=== PATIENT | male | born 1940 | race Caucasian/White ===

== ENCOUNTER 2024-11-11 13:21 | Inpatient (IN) | payer OTHER ==
[~2024-11-11] VITALS: Ht 182.9 cm; Wt 94.1 kg
[~2024-11-11 13:21] MED LIST: ACET-6 PO; ATOR20TA50 PO; BACL10TA PO; DICL-545 EXT; FURO20TA4 PO; IBUP-1455 PO; IPR002IS NEB; LEVA1AER PO; LOSA-535 PO; METO25TA93 PO; OXYC325T14 PO; TRAM50TA2 PO
[2024-11-11 18:16] LABS: Basophils # (auto) 0 10 ^3/uL (0-0.2); Basophils % (auto) 0.2 % (0.0-2.0); Eosinophils # (auto) 0 10 ^3/uL (0-0.8); Hematocrit 37.7 % (41.0-53.0); Lymphocytes # (auto) 0.7 10 ^3/uL (0.4-5.4); Lymphocytes % (auto) 5.2 % (10.0-50.0); Mean Corpuscular Hemoglobin 32.8 pg (28.0-32.0); Mean Corpuscular Hgb Conc. 34.5 g/dL (32.0-36.0); Mean Corpuscular Volume 95.2 fL (80.0-100.0); Monocytes # (auto) 0.7 10 ^3/uL (0-1.3); Monocytes % (auto) 4.7 % (0.0-12.0); Neutrophils % (auto) 89.9 % (37.0-80.0); Platelet Count (auto) 338 10^3/uL (140-450); Red Blood Cells 3.96 10^6/uL (4.5-5.90); Red Cell Distribution Width 15.9 % (11.8-14.3); White Blood Cell 14.5 10^3/uL (4.4-10.8)
[2024-11-11] MEDS: LACTATED RINGER'S 1,000 ML IV ONE (18:27)
[2024-11-11 18:31] VITALS: PULSE 74; RESP 20; O2SAT 95
[2024-11-11 18:37] LABS: Alanine Aminotransferase 32 U/L (7-40); Albumin 4.7 g/dL (3.2-4.8); Alkaline Phosphatase 74 U/L (46-116); Anion Gap 10 (5-15); Aspartate Aminotransferase 25 U/L (13-40); BUN/Creatinine Ratio 27.5 (10.0-20.0); Blood Urea Nitrogen 22 mg/dL (9-23); Calcium 10.1 mg/dL (8.7-10.4); Carbon Dioxide 27 mmol/L (20-31); Chloride 105 mmol/L (98-107); Lipase 30 U/L (12-53); Magnesium 2.3 mg/dL (1.6-2.6); Potassium 4.4 mmol/L (3.5-5.1); Sodium 142 mmol/L (136-145); Total Protein 7.7 g/dL (5.7-8.2)
[2024-11-11 18:38] LABS: Bilirubin, Total 0.6 mg/dL (0.2-1.0); Phosphorus 2.5 mg/dL (2.4-5.1)
[2024-11-11 18:43] LABS: Glucose 122 mg/dL (74-106)
--- NOTE | 2024-11-11 21:38 | ED.PDOC ---
History of Present Illness HPI Comments Dr. Ferrera, 84 year old gentleman with pmhx of COPD (2nd hand smoking), hypertension, congestive heart failure, osteoarthritis, chronic back pain, knee pain, hip pain, skin cancer status post excision, on legal parole came from home with sudden onset of Nausea that woke him up in the AM, with non bloody, non b iliary vomiting x 3 now having dry heave. Denies headache, neurological changes, aspiration, chest pain, constipation, diarrhea, dietary change, dysphagia, significant weight loss or any other GI symptoms. Had distant history of colonoscopy and never had any EGD done or GI follow up. Negative for familial GI malignancy or familial GI disorders. Accompanied by daughter. Chief Complaint: Nausea/Vomiting Time Seen by MD: 15:05 Primary Care Provider: LEYLA Drew Notes: Nurses Notes, Medications, Allergies Allergies: Coded Allergies: NO KNOWN ALLERGIES (Unverified , 11/11/24) Information Source: Patient, Relative (Child) Mode of Arrival: Wheelchair Severity: Moderate Timing: Hours Duration: Since onset, Intermittent Context: Nausea/ Vomiting Quality constant Worsens with diet Improves fasting Associated signs and symptoms watery vomitus Past Medical History Past Medical History (Other): as above Surgical History (Other): as above Family History Family History: Reviewed,noncontributory to illness Social History Smoker: Non-Smoker Alcohol: Denies ETOH Use Drugs: Denies Drug Use Lives In: Home (at home with daughter, has cane and walker ) Constitutional: denies: chills, diaphoresis, fatigue, fever, malaise, sweats, weakness, others EENTM: denies: blurred vision, double vision, ear bleeding, ear discharge, ear drainage, ear pain, ear ringing, eye pain, eye redness, hearing loss, mouth pain, mouth swelling, nasal discharge, nose bleeding, nose congestion, nose p ain, photophobia, tearing, throat pain, throat swelling, voice changes, others Respiratory: denies: cough, hemoptysis, orthopnea, SOB at rest, shortness of breath, SOB with excertion, stridor, wheezing, others Cardiovascular: denies: chest pain, dizzy spells, diaphoresis, Dyspnea on exertion, edema, irregular heart beat, left arm pain, lightheadedness, palpitations, PND, syncope, others Gastrointestinal: reports: nausea, poor appetite, poor fluid intake, vomiting; denies: abdomen distended, abdominal pain, blood streaked bowels, constipated, diarrhea, dysphagia, difficulty swallowing, hematemesis, melena, rectal bleeding, rectal pain, others Genitourinary: denies: burning, dysuria, flank pain, frequency, hematuria, incontinence, penile discharge, penile sore, pain, testicle pain, testicle swelling, urgency, others Neurological: denies: dizziness, fainting, headache, left sided numbness, left sided weakness, numbness, paresthesia, pre-existing deficit, right sided numbness, right sided weakness, seizure, speech problems, tingling, tremors, weakness, others Musculoskeletal: denies: back pain, gout, joint pain, joint swelling, muscle pain, muscle stiffness, neck pain, others Integumetry: denies: bruises, change in color, change in hair/nails, dryness, laceration, lesions, lumps, rash, wounds, others Allergic/Immunocompromised: denies: Difficulty Healing, Frequent Infections, Hives, Itching, others Hematologic/Lymphatic: denies: anemia, blood clots, easy bleeding, easy bruising, swollen glands, others Endocrine: denies: excessive hunger, excessive sweating, excessive thirst, excessive urination, flushing, intolerance to cold, intolerance to heat, unexplained weight gain, unexplained weight loss, others Psychiatric: denies: anxiety, bipolar disorder, depression, hopeless, panic disorder, schizophrenia, sleepless, suicidal, others Physical Exam General Appearance: Mild Distress HEENT: None, Other (only teeths left ) Neck: Full Range of Motion, Normal, Normal Inspection Respiratory: Lungs Clear, No Accessory Muscle Use, No Respiratory Distress, Normal Breath Sounds Cardiovascular: No Edema, No Murmur, No Gallop, Normal Peripheral Pulses, Regular Rate/Rhythm Breast Exam: Deferred Gastrointestinal: Abnormal Bowel Sounds (increased BS +), none, No Organomegaly, Non Tender, No Pulsatile Mass, Soft Genitalia: Deferred Pelvic: Deferred Rectal: Deferred Extremities: No calf tenderness, No pedal edema Neurologic: Alert, senior management consultant II-XII nml as Tested, No Motor Deficits, Normal Mood, No Sensory Deficits Cerebellar Function: Normal Reflexes: Normal Skin: Normal Color, Warm Lymphatic: NOT DONE Was a procedure done? Was a procedure done?: No EKG EKG : Comments no stt changes. Differential Dx Considerations may include: PUD, GERD, gastroenteritis, colitis, pancreatitis, diverticulitis, intraabdominal infection, sepsis, surgical abdomen, borrhave syndrome to rule out, aspiration pneumonia, ACS X-Ray, Labs, Meds, VS Vital Signs Date Time Temp Pulse Resp B/P (MAP) Pulse Ox O2 Delivery O2 Flow Rate FiO2 11/11/24 18:31 98.3 74 20 148/74 (98) 95 98.3 11/11/24 18:31 74 20 95 Room Air* 0 21 11/11/24 13:34 98.2 76 18 150/83 (105) 93 98.2 Lab Test 11/11/24 17:46 Range/Units White Blood Count 14.5 H 4.4-10.8 10^3/uL Red Blood Count 3.96 L 4.5-5.90 10^6/uL Hemoglobin 13.0 L 13.5-17.5 g/dL Hematocrit 37.7 L 41.0-53.0 % Mean Corpuscular Volume 95.2 80.0-100.0 fL Mean Corpuscular Hemoglobin 32.8 H 28.0-32.0 pg Mean Corpuscular Hemoglobin Concent 34.5 32.0-36.0 g/dL Red Cell Distribution Width 15.9 H 11.8-14.3 % Platelet Count 338 140-450 10^3/uL Mean Platelet Volume 7.9 6.9-10.8 fL Neutrophils (%) (Auto) 89.9 H 37.0-80.0 % Lymphocytes (%) (Auto) 5.2 L 10.0-50.0 % Monocytes (%) (Auto) 4.7 0.0-12.0 % Eosinophils (%) (Auto) 0.0 0.0-7.0 % Basophils (%) (Auto) 0.2 0.0-2.0 % Neutrophils # (Auto) 13.0 H 1.6-8.6 10 ^3/uL Lymphocytes # (Auto) 0.7 0.4-5.4 10 ^3/uL Monocytes # (Auto) 0.7 0-1.3 10 ^3/uL Eosinophils # (Auto) 0 0-0.8 10 ^3/uL Basophils # (Auto) 0 0-0.2 10 ^3/uL Nucleated Red Blood Cells 0.0 % Sodium Level 142 136-145 mmol/L Potassium Level 4.4 3.5-5.1 mmol/L Chloride Level 105 98-107 mmol/L Carbon Dioxide Level 27 20-31 mmol/L Anion Gap 10 5-15 Blood Urea Nitrogen 22 9-23 mg/dL Creatinine 0.80 0.700-1.30 mg/dL Glomerular Filtration Rate Calc 88 >90 mL/min BUN/Creatinine Ratio 27.5 H 10.0-20.0 Serum Glucose 122 H 74-106 mg/dL Lactic Acid Level 1.6 0.4-2.0 mmol/L Calcium Level 10.1 8.7-10.4 mg/dL Phosphorus Level 2.5 2.4-5.1 mg/dL Magnesium Level 2.3 1.6-2.6 mg/dL Total Bilirubin 0.6 0.2-1.0 mg/dL Aspartate Amino Transferase (AST) 25 13-40 U/L Alanine Aminotransferase (ALT) 32 7-40 U/L Alkaline Phosphatase 74 46-116 U/L Troponin I High Sensitivity 3 L </=54 ng/L Total Protein 7.7 5.7-8.2 g/dL Albumin 4.7 3.2-4.8 g/dL Lipase 30 12-53 U/L Current Medications Medications (Trade) Dose Ordered Sig/Nela Route Start Time Stop Time Status Last Admin Lactated Ringer's 1,000 ml @ 50 mls/hr Q20H ONCE IV 11/11/24 17:30 11/12/24 13:29 11/11/24 18:27 Images Reviewed?: Images reviewed and evaluated by me Time of 1ST Reevaluation: 19:10 Reevaluation 1ST: Improved (with iv zofran) Time of 2ND Reevaluation: 20:55 Reevaluation 2ND: Unchanged (still nauseaus, one more vomiting episode, otherwise comfortable, likely septic, CT abdomen pelvis ordered. Decided for in hospital admission. ) Time of 3RD Reevaluation: 21:53 Reevaluation 3RD: Unchanged (Signed out to the hospital admitting team, further workup in progress. Plan discussed with the patient and family. NPO and iv fluid to conitnue cautiously as history of CHF. Discussed with Dr. Truong. ) Patient Education/Counseling: Diagnosis, Treatment, Prognosis, Need For Follow Up Family Education/Counseling: Diagnosis, Treatment, Prognosis, Need For Follow Up Sepsis focused exam: focus exam completed, time: (not meeting SIRS criteria) Sepsis Sepsis Reasesment Focused Exam Sepsis focused exam: focus exam completed (not meeting SIRS criteria), time: Departure 1 Departure Time of Disposition: 21:54 Impression: Primary Impression: Intractable nausea and vomiting Additional Impressions: Gastroenteritis Intra-abdominal infection Disposition: ADMITTED INPATIENT Admit to: Tele Condition: Guarded Critical Care Note Critical Care Time?: No Stability Stability form required: No Heart Score Heart Score: Heart Score Response (Comments) Value History N/A 0 EKG N/A 0 Age N/A 0 Risk Factors N/A 0 Troponin N/A 0 Total 0 TARUN PLASCENCIA RESIDENT Nov 11, 2024 21:38
[2024-11-11] MEDS: SODIUM CHLORIDE 0.9% 1,000 ML IV ONE (22:00)
--- NOTE | 2024-11-11 23:05 | DVH ---
Exam: CT CT AB PEL WO CON-NO ORAL OR IV History: possible GI infection Comparison Study: None available at time of dictation. Technique: Multidetector spiral CT of the abdomen was performed from lung bases to pubic symphysis. I maging was performed without IV contrast. Axial, coronal and sagittal multiplanar reformats were obta ined from the axial data set by the technologist. Radiation Dose : 1. Abdomen/Pelvis: CTDIvol 14 mGy, DLP 884 mGy*cm. Findings: Evaluation of solid organs is limited due to lack of intravenous contrast use. Lung Bases: No acute or significant lung base finding. Normal heart size. No pleural or pericardial effusion. Mild diffuse wall thickening of the distal esophagus. Liver: The liver is normal in size. No focal lesions. Gallbladder and Biliary Tree: Lobular hyperdensity within the gallbladder measuring up to 2.5 cm Spleen: Unremarkable Pancreas: The pancreas is grossly normal in appearance. Adrenal Glands: Unremarkable Kidneys: Kidneys are grossly normal without calculi or hydronephrosis. Bladder: Grossly unremarkable for degree of distention. Bowel: Small hiatal hernia. The stomach is grossly normal in appearance. Wall thickening involving th e gastro duodenal junction extension into the proximal duodenum.. Normal appendix is visualized in th e right lower quadrant without findings of appendicitis. Ascites: Absent Lymphadenopathy: No mesenteric, retroperitoneal or periportal lymphadenopathy. Abdominal Wall and Mesentery: Large left inguinal hernia demonstrating loops of sigmoid colon. No lali dence to suggest strangulation. Vasculature: The visualized abdominal aorta is normal in size and caliber. Evaluation of abdominal a nd pelvic vessels is limited due to lack of intravenous contrast. Pelvic Organs: Unremarkable Musculoskeletal: No aggressive focal bony lesions, acute fractures or dislocation. Severe degenerativ e change of the bilateral hip joints. Moderate degenerative changes of the visualized spine. IMPRESSION: Abnormal wall thickening of the gastro duodenal junction with extension into proximal duodenum no sig nificant adjacent fat stranding is noted. Findings are concerning for early infectious / inflammatory process with malignancy not excluded. Irregular lobulated hyperdense materials within the gallbladder. These may represent stones but furt her evaluation with ultrasound is recommended. Diffuse wall thickening of the distal esophagus concerning for acute infectious/ inflammatory esophag itis. Other etiologies not excluded. Possible layering of undigested material in the stomach. Consider further evaluation with CT enterog dave if there is concern for gastric pathology.
[2024-11-11] MEDS: metroNIDAZOLE 500MG/100ML 100 ML IV ONE (23:09)
[2024-11-11] MEDS: ONDANSETRON HCL 4 MG/2 ML VIAL IV PRN (23:34)
[2024-11-11] MEDS: hydrALAZINE HCL 20 MG/ML VL IV ONE (23:35)
--- NOTE | 2024-11-11 23:53 | DVH ---
XY CHEST TWO VIEWS ROUTINE CLINICAL HISTORY: copd exac COMPARISON: None TECHNIQUE: Frontal and lateral view of the chest was obtained FINDINGS: Lungs: No focal consolidation. . No pleural effusions heart size is normal There is calcification of the anterior longitudinal ligament. IMPRESSION: 1. Degenerative changes involving the thoracic spine lungs are clear heart size is normal.
[2024-11-11] MEDS: hydrALAZINE HCL 20 MG/ML VL ONE (23:54)
[2024-11-12] VITALS (20 sets, daily range): BP systolic 117–170; BP diastolic 72–81; PULSE 68–99; RESP 16–22; TEMP 97.7–98.6; O2SAT 83–99
[2024-11-12] MEDS: IPRATROPIUM BROM 0.5 MG/2.5ML INH SOL NEB SCH (00:29)
[2024-11-12] MEDS: ALBUTEROL SULF 2.5 MG/0.5ML(0.5%) NEB SOLN NEB SCH (00:29)
[2024-11-12] MEDS: hydrALAZINE HCL 20 MG/ML VL IV PRN (01:09)
[2024-11-12] MEDS: CIPROFLOXACIN 400MG/200ML 200 ML IV ONE (01:09)
[2024-11-12 03:31] LABS: Urine Bacteria None Seen /hpf (None Seen)
[2024-11-12 03:39] LABS: Urine Blood TRACE /uL (Negative); Urine Clarity Clear (Clear); Urine Color Yellow (Yellow); Urine Mucus FEW (None Seen); Urine Protein, UAD TRACE (Negative); Urine Specific Gravity 1.022 (1.001-1.035); Urine Squamous Epithelial Cell FEW /hpf (<5); Urine Urobilinogen Normal (Negative); Urine WBC 14 /HPF (0-3); Urine pH 5.5 (5.0-9.0)
[2024-11-12 04:35] LABS: Amphetamine Screen, Urine Neg (NEGATIVE); Opiate Scree,Urine Neg (NEGATIVE)
[2024-11-12 04:36] LABS: Barbiturate Scree,Urine Neg (NEGATIVE); Benzodiazephine Screen, Urine Neg (NEGATIVE); Cannabinoid Screen, Urine Neg (NEGATIVE); Cocaine Screen, Urine Neg (NEGATIVE); Phencyclidine Screen, Urine Neg (NEGATIVE)
--- NOTE | 2024-11-12 05:07 | DVHHPRES ---
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 According to the patient, he started feeling sick on the [place] of 11/10/2024 after he ate chicken, scalloped potatoes and stuffing. He notes he had 3 episodes of vomiting on 11/10/2024 and another 3 episodes of vomiting on 11/11/2024, denies seeing any blood in his vomit, denies similar symptoms in the past, denies any diarrhea. Denies any sick contacts or recent travel. On review of systems patient is complaining of nausea and vomiting. CT abdomen pelvis showed abnormal wall thickening of the gastroduodenal junction with extension to proximal duodenum no significant adjacent fat stranding is noted, findings concerning for early infectious/inflammatory process with malignancy not excluded. Irregular lobulated hyperdense material within the gallbladder. Diffuse wall thickening of the distal esophagus concerning for acute infectious/inflammatory esophagitis. Possible layering of undigested material in the stomach. Patient was started on IV fluids, ciprofloxacin and metronidazole. 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 Past Surgical History Skin cancer excision involving left upper extremity Smoke: No ALCOHOL: none Drugs: None Lives: with Family Review of Systems Constitutional: No: Fever, Chills, Sweats, Weakness, Malaise, Other Eyes: No: Pain, Vision change, Conjunctivae inflammation, Eyelid inflammation, Other, Redness ENT: No: Ear pain, Ear discharge, Nose pain, Nose discharge, Nose congestion, Mouth pain, Mouth swelling, Throat pain, Throat swelling, Other Respiratory: No: Cough, Dry, Shortness of breath, SOB with excertion, Wheezing, Hemoptysis, Pleuritic Pain, Sputum, Wheezing, Other Cardiovascular: No: Chest Pain, Palpitations, Orthopnea, Paroxysmal Noc. Dyspnea, Edema, Lt Headedness, Other Gastrointestinal: Nausea, Vomiting; No: Abdominal Pain, Diarrhea, Constipation, Melena, Hematochezia, Other Genitourinary: No Dysuria, No Frequency, No Incontinence, No Hematuria, No Retention, No Other Musculoskeletal: No: other, neck pain, shoulder pain, arm pain, back pain, hand pain, leg pain, foot pain Neurological: No: Weakness, Numbness, Incoordination, Change in speech, Confusion, Seizures, Other Allergies: Coded Allergies: NO KNOWN ALLERGIES (Unverified , 11/11/24) Medications Current Medications Medications Dose Ordered Sig/Nela Route Start Time Stop Time Status Last Admin Dose Admin Acetaminophen 325 mg Q4HP PRN PO 11/11/24 21:45 Ondansetron HCl 4 mg Q4HP PRN IV 11/11/24 21:45 11/12/24 01:11 4 MG Ciprofloxacin 200 ml @ 200 mls/hr Q12HR IV 11/12/24 09:00 Metronidazole 100 ml @ 100 mls/hr Q8HR IV 11/12/24 06:00 Ipratropium [place] 0.5 mg Q6HR NEB 11/12/24 00:00 11/12/24 00:29 0.5 MG Albuterol 2.5 mg Q6HR NEB 11/12/24 00:00 11/12/24 00:29 2.5 MG Hydralazine HCl 10 mg Q6HP PRN IV 11/12/24 00:15 11/12/24 01:09 10 MG Exam Vital Signs Vital Signs Date Time Temp Pulse Resp B/P (MAP) Pulse Ox O2 Delivery O2 Flow Rate FiO2 11/12/24 02:23 89 11/12/24 01:09 164/77 11/12/24 01:00 98.6 18 97 98.6 11/12/24 00:30 28 11/12/24 00:29 Room Air 11/12/24 00:29 0 General Appearance: Alert, Oriented X3, Cooperative, mild distress HEENT: Atraumatic, PERRLA, EOMI, Other (Dry mucous membranes) Respiratory: Normal air movement, Other (Scattered wheezes noted) Cardiovascular: Regular rate, Normal S1, Normal S2 Abdominal: Normal bowel sounds, Soft, Other (Mild generalized tenderness on deep palpation) Extremities: Other (1+ lower extremity edema) Skin: No rashes Neuro: Normal gait, Normal speech, Strength at 5/5 X4 ext, Sensation intact Psych/Mental Status: Mental status NL, Mood NL Labs/Xrays Labs Test 11/12/24 03:23 11/11/24 17:46 Range/Units Urine Color Yellow Yellow Urine Clarity Clear Clear Urine pH 5.5 5.0-9.0 Urine Specific Nelson 1.022 1.001-1.035 Urine Protein Trace H Negative Urine Ketones Negative Negative Urine Blood Trace H Negative /uL Urine Nitrite Negative Negative Urine Bilirubin Negative Negative Urine Urobilinogen Normal Negative mg/dL Urine Leukocyte Esterase 3+ Negative /uL Urine RBC 5 0 - 3 /hpf Urine Microscopic WBC 14 H 0-3 /HPF Urine Squamous Epithelial Cells Few <5 /hpf Urine Bacteria None seen None Seen /hpf Urine Mucus Few None Seen Urine Glucose Normal Normal mg/dL Urine Opiates Screen Neg NEGATIVE Urine Fentanyl Screen Neg NEGATIVE Urine Barbiturates Screen Neg NEGATIVE Urine Phencyclidine Screen Neg NEGATIVE Urine Amphetamines Screen Neg NEGATIVE Urine Benzodiazepines Screen Neg NEGATIVE Urine Cocaine Screen Neg NEGATIVE Urine Cannabinoids Screen Neg NEGATIVE White Blood Count 14.5 H 4.4-10.8 10^3/uL Red Blood Count 3.96 L 4.5-5.90 10^6/uL Hemoglobin 13.0 L 13.5-17.5 g/dL Hematocrit 37.7 L 41.0-53.0 % Mean Corpuscular Volume 95.2 80.0-100.0 fL Mean Corpuscular Hemoglobin 32.8 H 28.0-32.0 pg Mean Corpuscular Hemoglobin Concent 34.5 32.0-36.0 g/dL Red Cell Distribution Width 15.9 H 11.8-14.3 % Platelet Count 338 140-450 10^3/uL Mean Platelet Volume 7.9 6.9-10.8 fL Neutrophils (%) (Auto) 89.9 H 37.0-80.0 % Lymphocytes (%) (Auto) 5.2 L 10.0-50.0 % Monocytes (%) (Auto) 4.7 0.0-12.0 % Eosinophils (%) (Auto) 0.0 0.0-7.0 % Basophils (%) (Auto) 0.2 0.0-2.0 % Neutrophils # (Auto) 13.0 H 1.6-8.6 10 ^3/uL Lymphocytes # (Auto) 0.7 0.4-5.4 10 ^3/uL Monocytes # (Auto) 0.7 0-1.3 10 ^3/uL Eosinophils # (Auto) 0 0-0.8 10 ^3/uL Basophils # (Auto) 0 0-0.2 10 ^3/uL Nucleated Red Blood Cells 0.0 % Sodium Level 142 136-145 mmol/L Potassium Level 4.4 3.5-5.1 mmol/L Chloride Level 105 98-107 mmol/L Carbon Dioxide Level 27 20-31 mmol/L Anion Gap 10 5-15 Blood Urea Nitrogen 22 9-23 mg/dL Creatinine 0.80 0.700-1.30 mg/dL Glomerular Filtration Rate Calc 88 >90 mL/min BUN/Creatinine Ratio 27.5 H 10.0-20.0 Serum Glucose 122 H 74-106 mg/dL Lactic Acid Level 1.6 0.4-2.0 mmol/L Calcium Level 10.1 8.7-10.4 mg/dL Phosphorus Level 2.5 2.4-5.1 mg/dL Magnesium Level 2.3 1.6-2.6 mg/dL Total Bilirubin 0.6 0.2-1.0 mg/dL Aspartate Amino Transferase (AST) 25 13-40 U/L Alanine Aminotransferase (ALT) 32 7-40 U/L Alkaline Phosphatase 74 46-116 U/L Troponin I High Sensitivity 3 L </=54 ng/L Total Protein 7.7 5.7-8.2 g/dL Albumin 4.7 3.2-4.8 g/dL Lipase 30 12-53 U/L Assessment/Plan Assessment/Plan Acute intractable nausea and vomiting with leukocytosis Possible gastritis versus peptic ulcer disease? Probable infectious versus inflammatory esophagitis - CT abdomen pelvis: Abnormal wall thickening of the gastro duodenal junction with extension into proximal duodenum no significant adjacent fat stranding is noted. Findings are concerning for early infectious / inflammatory process with malignancy not excluded. Irregular lobulated hyperdense materials within the gallbladder. These may represent stones but further evaluation with ultrasound is recommended. Diffuse wall thickening of the distal esophagus concerning for acute infectious/ inflammatory esophagitis. Other etiologies not excluded.Possible layering of undigested material in the stomach. Consider further evaluation with CT enterography if there is concern for gastric pathology. 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 De La Cruz Plan discussed with: Patient, Spouse, Other (RN) My Orders Orders - VICKIE DARNELL RESIDENT Procedure Category Date Status Time Admit ADMIT 11/11/24 Transmitted 21:43 Allergies TATYANA 11/11/24 In Process 21:43 Code Status CODE 11/11/24 Transmitted 21:43 Acetaminophen Tablet PHA 11/11/24 In Process (Tylenol Tablet) 21:45 Ondansetron Hcl PHA 11/11/24 In Process (Zofran) 21:45 Complete Blood Count LAB 11/12/24 Logged 04:00 Comprehensive LAB 11/12/24 Logged Metabolic Panel 04:00 Npo (Nothing By DIET 11/12/24 Transmitted Mouth) Diet Breakfast Condition: Unstable TATYANA 11/11/24 In Process 21:43 Sequential TATYANA 11/11/24 In Process Compression Device Notify Md Of Changes TATYANA 11/11/24 In Process From Base 21:43 Ciprofloxacin PHA 11/12/24 In Process 400mg/200ml (Cipro Iv) 09:00 Metronidazole PHA 11/12/24 In Process 500mg/100ml (Flagyl 06:00 Sodium Chloride 0.9% PHA 11/11/24 In Process 22:00 Chest Two Views XY 11/11/24 Resulted Routine 23:04 Ipratropium Medneb PHA 11/12/24 In Process (Atrovent Medneb) 00:00 Albuterol Medneb PHA 11/12/24 In Process (Ventolin Medneb) 00:00 Date of Service: Nov 11, 2024 Billing Provider: AGUSTIN DE LA CRUZ MD Common Visit Codes: [id number] INP/OBS CARE (HIGH) Secondary Visit Codes: [id number] CARE PLAN 30 MINUTES VICKIE DARNELL Nov 12, 2024 05:07 AGUSTIN DE LA CRUZ MD Nov 13, 2024 11:41
[2024-11-12] MEDS: metroNIDAZOLE 500MG/100ML 100 ML IV SCH (05:29)
[2024-11-12 06:40] LABS: Basophils # (auto) 0 10 ^3/uL (0-0.2); Basophils % (auto) 0.1 % (0.0-2.0); Eosinophils # (auto) 0 10 ^3/uL (0-0.8); Hematocrit 34.4 % (41.0-53.0); Hemoglobin 11.7 g/dL (13.5-17.5); Lymphocytes % (auto) 6.3 % (10.0-50.0); Mean Corpuscular Hemoglobin 31.7 pg (28.0-32.0); Mean Corpuscular Volume 93.3 fL (80.0-100.0); Monocytes # (auto) 1.5 10 ^3/uL (0-1.3); Monocytes % (auto) 9.3 % (0.0-12.0); Neutrophils # (auto) 13.7 10 ^3/uL (1.6-8.6); Neutrophils % (auto) 84.3 % (37.0-80.0); Platelet Count (auto) 301 10^3/uL (140-450); Red Blood Cells 3.69 10^6/uL (4.5-5.90); White Blood Cell 16.2 10^3/uL (4.4-10.8)
[2024-11-12 07:18] LABS: Alanine Aminotransferase 24 U/L (7-40); Albumin 4.2 g/dL (3.2-4.8); Alkaline Phosphatase 61 U/L (46-116); Anion Gap 9 (5-15); Aspartate Aminotransferase 26 U/L (13-40); BUN/Creatinine Ratio 29.5 (10.0-20.0); Calcium 9.5 mg/dL (8.7-10.4); Carbon Dioxide 27 mmol/L (20-31); Chloride 105 mmol/L (98-107); Potassium 3.6 mmol/L (3.5-5.1); Sodium 141 mmol/L (136-145)
[2024-11-12 07:19] LABS: Bilirubin, Total 0.6 mg/dL (0.2-1.0)
[2024-11-12 07:22] LABS: Blood Urea Nitrogen 23 mg/dL (9-23); Glucose 135 mg/dL (74-106)
[2024-11-12] MEDS: CIPROFLOXACIN 400MG/200ML 200 ML IV SCH (08:32)
[2024-11-12] MEDS: PANTOPRAZOLE 40 MG/10 ML VIAL INJ IV SCH ×2 (08:32→21:33)
[2024-11-12] MEDS: LOSARTAN POTASSIUM 50 MG TAB PO SCH (08:37)
[2024-11-12] MEDS: METOPROLOL SUCCINATE XL 50 MG TAB PO SCH (08:39)
[2024-11-12] MEDS: FUROSEMIDE 40 MG TAB PO SCH (08:39)
[2024-11-12 10:09] LABS: Triglycerides 66 mg/dL (< 150)
[2024-11-12 10:10] LABS: LDL Cholesterol 33 mg/dL (< 100)
[2024-11-12 10:11] LABS: Cholesterol 87 mg/dL (< 200)
[2024-11-12 10:25] LABS: Folate (Folic Acid) 16.99 ng/mL (>5.38)
[2024-11-12 10:32] LABS: HDL Cholesterol 39 mg/dL (40-59)
--- NOTE | 2024-11-12 11:16 | DVH ---
INDICATION: lobulated gall bladder TECHNIQUE: Multiple real-time sonographic images were obtained of the right upper quadrant. COMPARISON: None FINDINGS: The liver demonstrates homogenous echotexture without focal mass lesions. The liver measure s 15 cm. There is no intrahepatic or extrahepatic ductal dilatation. The common duct measures 3 mm. Gallstones. There is gallbladder wall thickening measuring 5 mm. Sonographic Haddad's sign is reporte dly negative. The right kidney measures 9.0 cm. The right kidney is normal in contour, size, and shape. The echoge nicity is normal. There is no hydronephrosis. The pancreas is not well visualized due to overlying bowel gas. IMPRESSION: Gallstones. Mild nonspecific gallbladder wall thickening. Sonographic Haddad's sign is reportedly neg ative. If clinical concern for acute cholecystitis, consider further evaluation with nuclear medicin e HIDA scan.
[2024-11-12] MEDS: SUCRALFATE 1 GM/10 ML ORAL SUSP PO SCH (11:19)
--- NOTE | 2024-11-12 11:23 | DVHCONRES ---
Date Seen: Nov 12, 2024 Resident Creating Document: FLACA FREDERICK RESIDENT Referring Physician Dr. Bob Ross Reason for Consultation Abnormal CT findings History of Present Illness RISHI DHALIWAL is a 84-year-old male with a PMH of skin cancer, COPD, CHF, HTN, asthma, presented to the ED with the chief complaints of nausea and vomiting. According to the patient, he started feeling sick on the chapito of 11/10/2024 after he ate chicken, scalloped potatoes and stuffing. He notes he had 3 episodes of vomiting on 11/10/2024 and another 3 episodes of vomiting on 11/11/2024, denies seeing any blood in his vomit, denies similar symptoms in the past, denies any diarrhea. Denies any sick contacts or recent travel. 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 Family History Not significant Social History Smoke: No ALCOHOL: none Drugs: None Lives: with Family Allergies: Coded Allergies: NO KNOWN ALLERGIES (Unverified , 11/11/24) Current Medications Current Medications Medications (Trade) Dose Ordered Sig/Nela Route PRN Reason Start Time Stop Time Status Last Admin Acetaminophen (Tylenol Tablet) 325 mg Q4HP PRN PO MILD PAIN (1-3 PAIN SCALE) 11/11/24 21:45 Ondansetron HCl (Zofran) 4 mg Q4HP PRN IV NAUSEA / VOMITING 11/11/24 21:45 11/12/24 05:30 Ciprofloxacin 200 ml @ 200 mls/hr Q12HR IV 11/12/24 09:00 11/12/24 08:32 Metronidazole 100 ml @ 100 mls/hr Q8HR IV 11/12/24 06:00 11/12/24 05:29 Ipratropium [place] (Atrovent Medneb) 0.5 mg Q6HR NEB 11/12/24 00:00 11/12/24 05:56 Albuterol (Ventolin Medneb) 2.5 mg Q6HR NEB 11/12/24 00:00 11/12/24 05:56 Hydralazine HCl (Apresoline Injection) 10 mg Q6HP PRN IV SBP>150 11/12/24 00:15 11/12/24 01:09 Losartan Potassium (Cozaar Tablet) 100 mg DAILY PO 11/12/24 10:00 Atorvastatin Calcium (Lipitor) 20 mg HS PO 11/12/24 22:00 Metoprolol Succinate (Toprol Xl) 25 mg DAILY PO 11/12/24 10:00 Furosemide (Lasix Tablet) 40 mg DAILY PO 11/12/24 10:00 11/12/24 09:38 DC Tramadol HCl (Ultram) 50 mg QPM PO 11/12/24 18:00 Pantoprazole Sodium (Protonix) 40 mg DAILY IV 11/12/24 10:00 11/12/24 09:40 DC 11/12/24 08:32 Pantoprazole Sodium (Protonix) 40 mg BID IV 11/12/24 22:00 Sucralfate (Carafate Susp) 1 gm QID@0600,1130,1700,2200 PO 11/12/24 11:30 Review of Systems Patient seen and examined at the bedside. Patient reported despite of Zofran patient continuously having nausea and vomiting, added Zofran. Planning to do EGD likely tomorrow. Vital Signs Vital Signs Date Time Temp Pulse Resp B/P (MAP) Pulse Ox O2 Delivery O2 Flow Rate FiO2 11/12/24 10:00 95 Room Air* 0 21 11/12/24 09:00 98.2 69 19 126/72 (90) 98.2 Physical Exam Pt is lying on bed General Appearance: Alert, Oriented X3, Cooperative, Not in acute distress HEENT: Atraumatic, Mucous membranesDry Respiratory: Clear to auscultation, Normal air movement, mild wheezing Cardiovascular: Regular rate, Normal S1, Normal S2, No murmurs Abdominal: Active bowel sounds, Soft, no distention, mild generalized tenderness Extremities: No edema, Normal pulses, No tenderness/swelling Skin: No Significant rash, except past surgical scars Neuro: Normal speech, sensorimotor deficits none Psych/Mental Status: Mental status NL, Mood NL Nurse was there as sharperone during examination Labs/Diagnostic Data Labs Test 11/12/24 06:11 11/12/24 03:23 11/11/24 17:46 Range/Units White Blood Count 16.2 H 4.4-10.8 10^3/uL Red Blood Count 3.69 L 4.5-5.90 10^6/uL Hemoglobin 11.7 L 13.5-17.5 g/dL Hematocrit 34.4 L 41.0-53.0 % Mean Corpuscular Volume 93.3 80.0-100.0 fL Mean Corpuscular Hemoglobin 31.7 28.0-32.0 pg Mean Corpuscular Hemoglobin Concent 34.0 32.0-36.0 g/dL Red Cell Distribution Width 16.0 H 11.8-14.3 % Platelet Count 301 140-450 10^3/uL Mean Platelet Volume 7.8 6.9-10.8 fL Neutrophils (%) (Auto) 84.3 H 37.0-80.0 % Lymphocytes (%) (Auto) 6.3 L 10.0-50.0 % Monocytes (%) (Auto) 9.3 0.0-12.0 % Eosinophils (%) (Auto) 0.0 0.0-7.0 % Basophils (%) (Auto) 0.1 0.0-2.0 % Neutrophils # (Auto) 13.7 H 1.6-8.6 10 ^3/uL Lymphocytes # (Auto) 1.0 0.4-5.4 10 ^3/uL Monocytes # (Auto) 1.5 H 0-1.3 10 ^3/uL Eosinophils # (Auto) 0 0-0.8 10 ^3/uL Basophils # (Auto) 0 0-0.2 10 ^3/uL Nucleated Red Blood Cells 0.0 % Sodium Level 141 136-145 mmol/L Potassium Level 3.6 3.5-5.1 mmol/L Chloride Level 105 98-107 mmol/L Carbon Dioxide Level 27 20-31 mmol/L Anion Gap 9 5-15 Blood Urea Nitrogen 23 9-23 mg/dL Creatinine 0.78 0.700-1.30 mg/dL Glomerular Filtration Rate Calc 89 >90 mL/min BUN/Creatinine Ratio 29.5 H 10.0-20.0 Serum Glucose 135 H 74-106 mg/dL Hemoglobin A1c 6.2 H <5.7 % A1C Calcium Level 9.5 8.7-10.4 mg/dL Total Bilirubin 0.6 0.2-1.0 mg/dL Aspartate Amino Transferase (AST) 26 13-40 U/L Alanine Aminotransferase (ALT) 24 7-40 U/L Alkaline Phosphatase 61 46-116 U/L Total Protein 7.0 5.7-8.2 g/dL Albumin 4.2 3.2-4.8 g/dL Triglycerides Level 66 < 150 mg/dL Cholesterol Level 87 < 200 mg/dL LDL Cholesterol 33 < 100 mg/dL HDL Cholesterol 39 L 40-59 mg/dL Vitamin B12 Level 321 211-911 pg/mL Vitamin D 25-Hydroxy 44.8 30.0-100 ng/mL Folic Acid 16.99 >5.38 ng/mL Thyroid Stimulating Hormone (TSH) 0.55 0.55-4.78 uIU/mL Urine Color Yellow Yellow Urine Clarity Clear Clear Urine pH 5.5 5.0-9.0 Urine Specific [place] 1.022 1.001-1.035 Urine Protein Trace H Negative Urine Ketones Negative Negative Urine Blood Trace H Negative /uL Urine Nitrite Negative Negative Urine Bilirubin Negative Negative Urine Urobilinogen Normal Negative mg/dL Urine Leukocyte Esterase 3+ Negative /uL Urine RBC 5 0 - 3 /hpf Urine Microscopic WBC 14 H 0-3 /HPF Urine Squamous Epithelial Cells Few <5 /hpf Urine Bacteria None seen None Seen /hpf Urine Mucus Few None Seen Urine Glucose Normal Normal mg/dL Urine Opiates Screen Neg NEGATIVE Urine Fentanyl Screen Neg NEGATIVE Urine Barbiturates Screen Neg NEGATIVE Urine Phencyclidine Screen Neg NEGATIVE Urine Amphetamines Screen Neg NEGATIVE Urine Benzodiazepines Screen Neg NEGATIVE Urine Cocaine Screen Neg NEGATIVE Urine Cannabinoids Screen Neg NEGATIVE Lactic Acid Level 1.6 0.4-2.0 mmol/L Phosphorus Level 2.5 2.4-5.1 mg/dL Magnesium Level 2.3 1.6-2.6 mg/dL Troponin I High Sensitivity 3 L </=54 ng/L Lipase 30 12-53 U/L Assessment Acute intractable nausea and vomiting Possible gastritis/ esophagitis COPD in exacerbation CHF( Ch. Sys /kat) HTN Plan/Recommendation - EGD tomorrow - Clear liquid diet for now - Protonix b.i.d. IV , Carafate - NPO after midnight - Reglan 5 mg q.8 hours - CT abdomen pelvis -Abnormal wall thickening of the gastro duodenal junction with extension into proximal duodenum no significant adjacent fat stranding is noted. Findings are concerning for early infectious / inflammatory process with malignancy not excluded. Irregular lobulated hyperdense materials within the gallbladder. These may represent stones but further evaluation with ultrasound is recommended. Diffuse wall thickening of the distal esophagus concerning for acute infectious/ inflammatory esophagitis. -Avoid NSAIDs, aspirin, caustic agents Thank you so much for the opportunity to consult on your patient. GI team will follow the patient Case an action plan discussed with Dr. Faiza Aleman. Complex care planning needed total 49 minutes of detailed discussion. Plan discussed with: Patient YOLYFLACA RESIDENT Nov 12, 2024 11:23
--- NOTE | 2024-11-12 11:24 | DVHPNRES ---
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 According to the patient, he started feeling sick on the [place] of 11/10/2024 after he ate chicken, scalloped potatoes and stuffing. He notes he had 3 episodes of vomiting on 11/10/2024 and another 3 episodes of vomiting on 11/11/2024, denies seeing any blood in his vomit, denies similar symptoms in the past, denies any diarrhea. Denies any sick contacts or recent travel. On review of systems patient is complaining of nausea and vomiting. CT abdomen pelvis showed abnormal wall thickening of the gastroduodenal junction with extension to proximal duodenum no significant adjacent fat stranding is noted, findings concerning for early infectious/inflammatory process with malignancy not excluded. Irregular lobulated hyperdense material within the gallbladder. Diffuse wall thickening of the distal esophagus concerning for acute infectious/inflammatory esophagitis. Possible layering of undigested material in the stomach. Patient was started on IV fluids, ciprofloxacin and metronidazole. 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 bowel movement today. Objective vital signs Vital Sign Date Time Temp Pulse Resp B/P (MAP) Pulse Ox O2 Delivery O2 Flow Rate FiO2 11/12/24 10:00 95 Room Air* 0 21 11/12/24 09:00 98.2 69 19 126/72 (90) 98.2 Total Intake and Output 11/11/24 11/11/24 11/12/24 15:00 23:00 07:00 Intake Total 400 ml Output Total 0 ml Balance 400 ml medications Current Medications Medications Dose Ordered Sig/Nela Route Start Time Stop Time Status Last Admin Dose Admin Acetaminophen 325 mg Q4HP PRN PO 11/11/24 21:45 Ondansetron HCl 4 mg Q4HP PRN IV 11/11/24 21:45 11/12/24 05:30 4 MG Ciprofloxacin 200 ml @ 200 mls/hr Q12HR IV 11/12/24 09:00 11/12/24 08:32 200 MLS/HR Metronidazole 100 ml @ 100 mls/hr Q8HR IV 11/12/24 06:00 11/12/24 05:29 100 MLS/HR Ipratropium [place] 0.5 mg Q6HR NEB 11/12/24 00:00 11/12/24 05:56 0.5 MG Albuterol 2.5 mg Q6HR NEB 11/12/24 00:00 11/12/24 05:56 2.5 MG Hydralazine HCl 10 mg Q6HP PRN IV 11/12/24 00:15 11/12/24 01:09 10 MG Losartan Potassium 100 mg DAILY PO 11/12/24 10:00 Atorvastatin Calcium 20 mg HS PO 11/12/24 22:00 Metoprolol Succinate 25 mg DAILY PO 11/12/24 10:00 Tramadol HCl 50 mg QPM PO 11/12/24 18:00 Pantoprazole Sodium 40 mg BID IV 11/12/24 22:00 Sucralfate 1 gm QID@0600,1130,1700,2200 PO 11/12/24 11:30 Metoclopramide HCl 5 mg Q8HR IV 11/12/24 14:00 UNV Examination General Appearance: Cooperative. Well developed. Well nourished. NAD Head Exam: Normal inspection Neck Exam: Normal inspection. Non-tender. Normal alignment Pulmonary/Respiratory: Chest non-tender. Clear bilateral breath sounds Cardiovascular/Chest: Regular rate and rhythm. No murmurs. No JVD. Peripheral Pulses: 2+ Radial (R). 2+ Radial (L). 2+ Pedal (R). 2+ Pedal (L) Abdominal Exam: Normal bowel sounds. Soft. Nontender. No hepatospenomegaly. No masses Ankle Exam: Negative ankle edema Lower extremities: Negative lower extremity edema Neuro/Mental Status: A&O x4. Coherent Thoughts/Psych: Normal thought pattern. Appropriate mood and affect. Good judgement and insight Appearance: In no acute distress Skin Exam: Normal inspection. Normal color. Warm. 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 Possible endoscopy CT abdomen pelvis: Abnormal wall thickening of the gastro duodenal junction with extension into proximal duodenum no significant adjacent fat stranding is noted. Findings are concerning for early infectious / inflammatory process with malignancy not excluded. Irregular lobulated hyperdense materials within the gallbladder. These may represent stones but further evaluation with ultrasound is recommended. Diffuse wall thickening of the distal esophagus concerning for acute infectious/ inflammatory esophagitis. Other etiologies not excluded.Possible layering of undigested material in the stomach. Consider further evaluation with CT enterography if there is concern for gastric pathology IV fluids IV ceftriaxone and metronidazole Ipratropium and albuterol p.r.n. Hold Lasix 40 mg Continue home medication metoprolol Pending echocardiogram Continue losartan 100 mg p.o. daily Continue Atorvastatin 20 mg p.o. daily Continue home medication abdominal 50 mg p.o. daily PUD prophylaxis with Protonix DVT prophylaxis with SCD Goals of care: Full code, discussed for >16 minutes on 11/11/2024 by hospitalist Plan discussed with Dr. Rdz Plan discussed with: Patient, Other (RN) My Orders My Orders Orders - ELADIO NELSON Procedure Category Date Status Time Gallbladder US 11/12/24 Resulted 09:28 Blood Culture HARSHA 11/12/24 In Process 09:34 Date of Service: Nov 12, 2024 Billing Provider: SHIRA RDZ DO Common Visit Codes: [id number] INP/OBS CARE(HIGH) ELADIO NELSON Nov 12, 2024 11:24 SHIRA RDZ DO Nov 14, 2024 22:41
[2024-11-12] MEDS: ONDANSETRON HCL 4 MG/2 ML VIAL IV SCH (12:15)
[2024-11-12] MEDS: METOCLOPRAMIDE HCL 5MG/ml INJ 2ml VIAL IV ONE (12:15)
[2024-11-12] MEDS: METOCLOPRAMIDE HCL 5MG/ml INJ 2ml VIAL IV SCH (13:06)
--- NOTE | 2024-11-12 13:58 | DVHSR ---
APPROVED REPORT EXAM: Two-dimensional and M-mode echocardiogram with Doppler and color Doppler. Blood Pressure: 144/75 mmHg INDICATION Heart Failure RISK FACTORS Height: 6', Weight: 204 DIMENSIONS LVDd4.7 (3.8-5.7cm)LA (2D)5.0 (1.9-4.0cm)Aortic Root4.1 (2.0-3.7cm) LVDs2.5 (2.5-4.0cm)LA (MM) (1.9-4.0cm)Aortic Cusp Exc2.1 (1.5-2.0cm) EF (%) 77.0 (55-70%)Rt. Atrium5.3 (1.9-4.0cm)Asc. Aorta4.0 cm IVSd1.0 (0.7-1.1cm)RV (D)4.4 (1.8-2.4cm) PWd1.1 (0.7-1.1cm) Mitral Valve MitralMitral Stenosis E wave0.58m/sMV Mean GR.mmHg A wave1.03m/sMV Peak GR.mmHg E/A ratio0.62D MVAcm2 DECEL [id number] 1/2 Timems Aortic Valve Aortic ValveAortic Stenosis V11.20m/Cezar Mean GR.4mmHg V21.53m/Cezar Peak GR.2mmHg LVOT Diameter2.4 (1.8-2.4cm)Doppler AVA3.55cm2 Pulmonic Valve V21.22m/s Tricuspid Valve TR Velocity3.14m/s [id number] Other Information Quality : Technically LimitedRhythm : Technically limited study due to body habitus. Conclusion LVEF normal at 60-65%, mild LVH RV function normal Mild tricuspid regurgitation, moderate pulmonary htn rvsp 45-50mmgh Bubble study negative for interatrial shunt PFO/ASD
[2024-11-12] MEDS: traMADol HCL 50 MG TAB PO SCH (17:05)
[2024-11-12] MEDS: ATORVASTATIN 20 MG TAB PO SCH (21:31)
[2024-11-13] VITALS (14 sets, daily range): BP systolic 125–141; BP diastolic 56–77; PULSE 67–91; RESP 16–20; TEMP 97.8–98.6; O2SAT 91–100
[2024-11-13 07:35] LABS: Anion Gap 8 (5-15); Carbon Dioxide 26 mmol/L (20-31); Potassium 3.8 mmol/L (3.5-5.1); Sodium 142 mmol/L (136-145)
[2024-11-13 07:36] LABS: Calcium 8.8 mg/dL (8.7-10.4)
[2024-11-13 07:41] LABS: Chloride 108 mmol/L (98-107)
[2024-11-13 07:42] LABS: BUN/Creatinine Ratio 24.4 (10.0-20.0); Blood Urea Nitrogen 19 mg/dL (9-23); Glucose 123 mg/dL (74-106)
[2024-11-13 07:50] LABS: Basophils # (auto) 0 10 ^3/uL (0-0.2); Basophils % (auto) 0.2 % (0.0-2.0); Eosinophils # (auto) 0 10 ^3/uL (0-0.8); Eosinophils % (auto) 0.2 % (0.0-7.0); Hematocrit 31.9 % (41.0-53.0); Hemoglobin 10.7 g/dL (13.5-17.5); Lymphocytes # (auto) 1.2 10 ^3/uL (0.4-5.4); Mean Corpuscular Hemoglobin 32.3 pg (28.0-32.0); Mean Corpuscular Hgb Conc. 33.4 g/dL (32.0-36.0); Mean Corpuscular Volume 96.6 fL (80.0-100.0); Monocytes # (auto) 1.3 10 ^3/uL (0-1.3); Monocytes % (auto) 8.3 % (0.0-12.0); Neutrophils % (auto) 83.3 % (37.0-80.0); Platelet Count (auto) 251 10^3/uL (140-450); Red Cell Distribution Width 16.1 % (11.8-14.3); White Blood Cell 15.6 10^3/uL (4.4-10.8)
[2024-11-13 10:00] LABS: INR 1.05 (0.9-1.15); Partial Thromboplastin Time 27.8 SEC (24.5-34.5); Prothrombin Time 11.1 sec (9.3-11.8)
[2024-11-13] MEDS: SODIUM CHLORIDE 0.9% 1,000 ML IV SCH (10:12)
--- NOTE | 2024-11-13 14:20 | DVHPNRES ---
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 According to the patient, he started feeling sick on the [place] of 11/10/2024 after he ate chicken, scalloped potatoes and stuffing. He notes he had 3 episodes of vomiting on 11/10/2024 and another 3 episodes of vomiting on 11/11/2024, denies seeing any blood in his vomit, denies similar symptoms in the past, denies any diarrhea. Denies any sick contacts or recent travel. On review of systems patient is complaining of nausea and vomiting. CT abdomen pelvis showed abnormal wall thickening of the gastroduodenal junction with extension to proximal duodenum no significant adjacent fat stranding is noted, findings concerning for early infectious/inflammatory process with malignancy not excluded. Irregular lobulated hyperdense material within the gallbladder. Diffuse wall thickening of the distal esophagus concerning for acute infectious/inflammatory esophagitis. Possible layering of undigested material in the stomach. Patient was started on IV fluids, ciprofloxacin and metronidazole. 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 NPO. Plan for EGD today Objective vital signs Vital Sign Date Time Temp Pulse Resp B/P (MAP) Pulse Ox O2 Delivery O2 Flow Rate FiO2 11/13/24 13:52 84 18 100 11/13/24 12:42 98.4 138/72 (94) 98.4 11/13/24 08:00 Room Air* 0 21 Total Intake and Output 11/12/24 11/12/24 11/13/24 15:00 23:00 07:00 Intake Total 300 ml 300 ml 100 ml Balance 300 ml 300 ml 100 ml medications Current Medications Medications Dose Ordered Sig/Nela Route Start Time Stop Time Status Last Admin Dose Admin Acetaminophen 325 mg Q4HP PRN PO 11/11/24 21:45 Ciprofloxacin 200 ml @ 200 mls/hr Q12HR IV 11/12/24 09:00 11/13/24 09:48 200 MLS/HR Metronidazole 100 ml @ 100 mls/hr Q8HR IV 11/12/24 06:00 11/13/24 14:15 100 MLS/HR Ipratropium [place] 0.5 mg Q6HR NEB 11/12/24 00:00 11/13/24 13:44 0.5 MG Albuterol 2.5 mg Q6HR NEB 11/12/24 00:00 11/13/24 13:44 2.5 MG Hydralazine HCl 10 mg Q6HP PRN IV 11/12/24 00:15 11/12/24 01:09 10 MG Losartan Potassium 100 mg DAILY PO 11/12/24 10:00 Atorvastatin Calcium 20 mg HS PO 11/12/24 22:00 11/12/24 21:31 20 MG Metoprolol Succinate 25 mg DAILY PO 11/12/24 10:00 Tramadol HCl 50 mg QPM PO 11/12/24 18:00 11/12/24 17:05 50 MG Pantoprazole Sodium 40 mg BID IV 11/12/24 22:00 11/13/24 09:49 40 MG Sucralfate 1 gm QID@0600,1130,1700,2200 PO 11/12/24 11:30 11/13/24 05:40 1 GM Metoclopramide HCl 5 mg Q8HR IV 11/12/24 14:00 11/13/24 05:41 5 MG Ondansetron HCl 4 mg Q6HR IV 11/12/24 12:00 11/13/24 05:40 4 MG Sodium Chloride 1,000 ml @ 100 mls/hr Q10H IV 11/13/24 10:00 11/13/24 10:12 100 MLS/HR Examination General Appearance: Cooperative. Well developed. Well nourished. NAD Head Exam: Normal inspection Neck Exam: Normal inspection. Non-tender. Normal alignment Pulmonary/Respiratory: Chest non-tender. Clear bilateral breath sounds Cardiovascular/Chest: Regular rate and rhythm. No murmurs. No JVD. Peripheral Pulses: 2+ Radial (R). 2+ Radial (L). 2+ Pedal (R). 2+ Pedal (L) Abdominal Exam: Normal bowel sounds. Soft. Nontender. No hepatospenomegaly. No masses Ankle Exam: Negative ankle edema Lower extremities: Negative lower extremity edema Neuro/Mental Status: A&O x4. Coherent Thoughts/Psych: Normal thought pattern. Appropriate mood and affect. Good judgement and insight Appearance: In no acute distress Skin Exam: Normal inspection. Normal color. Warm. Dry laboratory and microbiology Laboratory Tests 11/13/24 06:43 Test 11/13/24 06:43 Range/Units Serum Glucose 123 H 74-106 mg/dL Microbiology Date/Time Source Procedure Growth Status 11/12/24 10:39 Blood Blood Culture - Preliminary NO GROWTH AFTER 24 HOURS OF INCUBATION. 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 abdomen pelvis: Abnormal wall thickening of the gastro duodenal junction with extension into proximal duodenum no significant adjacent fat stranding is noted. Findings are concerning for early infectious / inflammatory process with malignancy not excluded. Irregular lobulated hyperdense materials within the gallbladder. These may represent stones but further evaluation with ultrasound is recommended. Diffuse wall thickening of the distal esophagus concerning for acute infectious/ inflammatory esophagitis. Other etiologies not excluded.Possible layering of undigested material in the stomach. Consider further evaluation with CT enterography if there is concern for gastric pathology IV fluids IV ceftriaxone and metronidazole Ipratropium and albuterol p.r.n. Hold Lasix 40 mg Continue home medication metoprolol Pending echocardiogram Continue losartan 100 mg p.o. daily Continue Atorvastatin 20 mg p.o. daily Continue home medication abdominal 50 mg p.o. daily PUD prophylaxis with Protonix DVT prophylaxis with SCD Goals of care: Full code, discussed for >16 minutes on 11/11/2024 by hospitalist Plan discussed with Dr. Rdz Plan discussed with: Patient, Other (RN) My Orders My Orders Orders - ELADIO NELSON Procedure Category Date Status Time Stool Occult Blood LAB 11/13/24 Logged 08:44 Sodium Chloride 0.9% PHA 11/13/24 In Process 10:00 Date of Service: Nov 13, 2024 Billing Provider: SHIRA RDZ DO Common Visit Codes: [id number] INP/OBS CARE(HIGH) ELADIO NELSON RESIDENT Nov 13, 2024 14:20 SHIRA RDZ DO Nov 14, 2024 22:41
[2024-11-13] MEDS ORDERED: PROPOFOL 10 MG/ML 20 ML IV ONE (15:05)
[2024-11-13] MEDS ORDERED: LIDOCAINE 2% (LOCAL ANESTH.) PF 5ml SDV ONE (15:06)
[2024-11-13] MEDS ORDERED: LIDOCAINE 1% INJ PF 5ML AMP ONE (15:06)
--- NOTE | 2024-11-13 16:52 | DVHOP2 ---
Operative Report DATE OF OPERATION: 11/13/24 PROCEDURE: Upper Endoscopy with biopsy. PREOPERATIVE INDICATION: The patient is a 84 -year-old male undergoing endoscopy for abnormal finding GI tract imaging suspected esophagitis and duodenal deformity POSTOPERATIVE DIAGNOSES: 1. Patient had multiple medium and large postbulbar duodenal ulcers with slight narrowing and spasm of the postbulbar area causing partial obstruction 2. There was a food bezoar in the duodenal bulb which I was able to fragment and partially advance into the 2nd part of the duodenum 3. Moderate gastritis with multiple gastric ulcers and erosions 4. 2 cm sliding-type hiatal hernia with severe grade C erosive esophagitis with esophageal ulcers extending into the distal 10 cm of the esophagus from which biopsies were obtained 5. Otherwise normal examination up to the 2nd part of the duodenum with no active bleeding at this time PROCEDURE PERFORMED BY: Melissa Aleman GI NURSE: Joseluis SCOPE: Olympus videoendoscope. ASA CLASS: 3 PREOPERATIVE MEDICATIONS: Mac sedationObinna PROCEDURE IN DETAIL: After obtaining an informed consent, the patient was placed on left lateral decubitus position. The patient was then sedated with the above medications. A bite block was placed between his teeth. The endoscope was then passed through the oropharynx, into the esophagus, and through the stomach and pylorus up to the second and third part of the duodenum. The endoscope was then withdrawn. The 2nd and 3rd part of the duodenal were normal. The duodenal bulb and postbulbar area showed [id number] duodenitis with multiple medium and large duodenal ulcers. There was slight narrowing and angulation at the postbulbarduodenal area and there was a lot of food debris and food bezoar was sitting in the duodenal bulb With the scope I was able to fragment this and partially advance the food debris into the 2nd part of the duodenum. Duodenal biopsies were obtained The pre-pyloric area antrum and body showed moderate gastritis with multiple gastric erosions and small ulcers. Gastric biopsies were obtained On retroflexion the fundus and cardia were normal. The endoscope was then straightened withdrawn into the distal esophagus. Patient had a two cm sliding-type hiatal hernia with severe grade C erosive esophagitis with linear ulcers extending into the distal 10 cm of the esophagus Multiple biopsies were obtained and there was suspicion for possible underlying Barretts. The remaining mid to proximal esophagus and oropharynx were unremarkable The patient tolerated the procedure well without difficulty. COMPLICATIONS : None SPECIMENS: Duodenal biopsies Gastric biopsies Esophageal biopsies DISPOSITION: Transfer back to the floor Stable PLAN: 1. Await for biopsy result 2. Will place pt on Protonix 80mg IV bid 3. Carafate suspension 1 g p.o. 4 times a day 4. Start with clear liquid diet advance to full liquid if tolerated 5. DC aspirin NSAIDs smoking alcohol 6. Patient will need to get prescription for Protonix and Carafate long-term upon discharge MELISSA ALEMAN MD Nov 13, 2024 16:52
[2024-11-13] MEDS: SUCRALFATE 1 GM/10 ML ORAL SUSP PO SCH (17:00)
[2024-11-13] MEDS: ACETAMINOPHEN 325 MG TAB PO PRN (17:07)
[2024-11-13] MEDS ORDERED: SPIR25TA8 PO (17:13)
[2024-11-13] MEDS ORDERED: CHOL500021 PO (17:13)
[2024-11-13] MEDS: PANTOPRAZOLE 40 MG/10 ML VIAL INJ IV SCH (22:42)
[2024-11-13] MEDS: METOCLOPRAMIDE HCL 5MG/ml INJ 2ml VIAL IV SCH (22:42)
[2024-11-14] VITALS (16 sets, daily range): BP systolic 102–118; BP diastolic 48–62; PULSE 60–83; RESP 15–18; TEMP 97.4–98; O2SAT 90–99
--- NOTE | 2024-11-14 10:04 | DVHPN2 ---
Progress Note Date Seen: Nov 14, 2024 Resident Creating Document: FLACA FREDERICK RESIDENT Medical Necessity Reason Pt with a Central, PICC or Fol: No Subjective Review of Systems Patient seen and examined at the bedside. Patient reported mild improvement in his symptoms. Patient is currently full liquid diet and advanced as he tolerated. Objective vital signs Vital Sign Date Time Temp Pulse Resp B/P (MAP) Pulse Ox O2 Delivery O2 Flow Rate FiO2 11/14/24 07:55 82 18 99 11/14/24 07:49 Nasal Cannula 2.0 11/14/24 07:49 28 11/14/24 05:00 97.8 110/50 (70) 97.8 Total Intake and Output 11/13/24 11/13/24 11/14/24 14:59 22:59 06:59 Intake Total 500 ml 1250 ml 985 ml Output Total 350 ml Balance 500 ml 1250 ml 635 ml medications Current Medications Medications Dose Ordered Sig/Nela Route Start Time Stop Time Status Last Admin Dose Admin Acetaminophen 325 mg Q4HP PRN PO 11/11/24 21:45 11/13/24 17:07 325 MG Ciprofloxacin 200 ml @ 200 mls/hr Q12HR IV 11/12/24 09:00 11/13/24 23:41 200 MLS/HR Metronidazole 100 ml @ 100 mls/hr Q8HR IV 11/12/24 06:00 11/14/24 05:46 100 MLS/HR Ipratropium [place] 0.5 mg Q6HR NEB 11/12/24 00:00 11/14/24 07:49 0.5 MG Albuterol 2.5 mg Q6HR NEB 11/12/24 00:00 11/14/24 07:49 2.5 MG Hydralazine HCl 10 mg Q6HP PRN IV 11/12/24 00:15 11/12/24 01:09 10 MG Losartan Potassium 100 mg DAILY PO 11/12/24 10:00 Atorvastatin Calcium 20 mg HS PO 11/12/24 22:00 11/13/24 23:37 20 MG Metoprolol Succinate 25 mg DAILY PO 11/12/24 10:00 Tramadol HCl 50 mg QPM PO 11/12/24 18:00 11/13/24 17:07 50 MG Ondansetron HCl 4 mg Q6HR IV 11/12/24 12:00 11/14/24 05:47 4 MG Sodium Chloride 1,000 ml @ 100 mls/hr Q10H IV 11/13/24 10:00 11/13/24 20:00 100 MLS/HR Pantoprazole Sodium 80 mg BID IV 11/13/24 22:00 11/13/24 22:42 80 MG Sucralfate 1 gm QID@0600,1130,1700,2200 PO 11/13/24 17:00 11/14/24 06:02 1 GM Metoclopramide HCl 5 mg BID IV 11/13/24 22:00 11/13/24 22:42 5 MG Examination Pt is lying on bed General Appearance: Alert, Oriented X3, Cooperative, Not in acute distress HEENT: Atraumatic, Mucous membranes moist/pink Respiratory: Clear to auscultation, Normal air movement, No added sounds Cardiovascular: Regular rate, Normal S1, Normal S2, No murmurs Abdominal: Active bowel sounds, Soft, no distention, no tenderness Extremities: No edema, Normal pulses, No tenderness/swelling Skin: No Significant rash, except past surgical scars Neuro: Normal speech, sensorimotor deficits none Psych/Mental Status: Mental status NL, Mood NL Nurse was there as sharperone during examination laboratory and microbiology Laboratory Tests 11/13/24 06:43 Test 11/13/24 06:43 Range/Units Serum Glucose 123 H 74-106 mg/dL Microbiology Date/Time Source Procedure Growth Status 11/12/24 10:39 Blood Blood Culture - Preliminary NO GROWTH AFTER 24 HOURS OF INCUBATION. Resulted Labs and/or images reviewed: Labs reviewed by me, Image(s) reviewed by me Problem List/Assessment/Plan Problem List/Assessment/Plan Acute intractable nausea and vomiting Possible gastritis/ esophagitis COPD in exacerbation CHF( Ch. Sys /kat) HTN Plan/Recommendation - EGD : 1. Patient had multiple medium and large postbulbar duodenal ulcers with slight narrowing and spasm of the postbulbar area causing partial obstruction 2. There was a food bezoar in the duodenal bulb which I was able to fragment and partially advance into the 2nd part of the duodenum 3. Moderate gastritis with multiple gastric ulcers and erosions 4. 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 4 times a day - Reglan 5 mg q.8 hours - DC aspirin NSAIDs smoking alcohol - Patient will need to get prescription for Protonix and Carafate long-term upon discharge - CT abdomen pelvis -Abnormal wall thickening of the gastro duodenal junction with extension into proximal duodenum no significant adjacent fat stranding is noted. Findings are concerning for early infectious / inflammatory process with malignancy not excluded. Irregular lobulated hyperdense materials within the gallbladder. These may represent stones but further evaluation with ultrasound is recommended. Diffuse wall thickening of the distal esophagus concerning for acute infectious/ inflammatory esophagitis. -Avoid NSAIDs, aspirin, caustic agents Thank you so much for the opportunity to consult on your patient. GI team will follow the patient Case an action plan discussed with Dr. Faiza Aleman. Complex care planning needed total 49 minutes of detailed discussion. Plan discussed with: Patient Dietary Evaluation Review Comments: 1) Advance diet as meidcally feasible 2) Continue current plan of care Expected Outcomes/Goals: To meet >75% estimated needs Fu 2-3 days FLACA FREDERICK RESIDENT Nov 14, 2024 10:04
--- NOTE | 2024-11-14 12:45 | DVHPN2 ---
Subjective The patient is seen and examined at bedside. No complaint today. Reviewed: Care Plan, H&P, Labs, Medications, Previous Orders, Radiology Changes from previous H/P or p: No Changes Eyes: No Pain, No Vision change, No Conjunctivae inflammation, No Eyelid inflammation, No Other, No Redness ENT: No Ear pain, No Ear discharge, No Nose pain, No Nose discharge, No Nose congestion, No Mouth pain, No Mouth swelling, No Throat pain, No Throat swelling, No Other Cardiovascular: No Chest Pain, No Palpitations, No Orthopnea, No Paroxysmal Noc. Dyspnea, No Edema, No Lt Headedness, No Other Respiratory: No Cough, No Dry, No Shortness of breath, No SOB with excertion, No Wheezing, No Hemoptysis, No Pleuritic Pain, No Sputum, No Other Gastrointestinal: Nausea, Vomiting; No Abdominal Pain, No Diarrhea, No Constipation, No Melena, No Hematochezia, No Other Genitourinary: No Dysuria, No Frequency, No Incontinence, No Hematuria, No Retention, No Other Musculoskeletal: No other, No neck pain, No shoulder pain, No arm pain, No back pain, No hand pain, No leg pain, No foot pain Objective Vitals Vital Signs Date Time Temp Pulse Resp B/P (MAP) Pulse Ox O2 Delivery O2 Flow Rate FiO2 11/14/24 10:27 70 102/48 11/14/24 10:00 94 Nasal Cannula* 2 28 11/14/24 09:00 97.7 17 97.7 Intake/Output Intake and Output 11/14/24 07:00 Intake Total 2735 ml Output Total 350 ml Balance 2385 ml Intake Oral 585 ml IV Total 2150 ml Output Urine Total 350 ml # Bowel Movements 1 General Appearance: Alert, Cooperative, No acute distress HEENT: Atraumatic, PERRLA, EOMI, Mucous membr. moist/pink Neck: Supple Lungs: Clear to auscultation, Normal air movement Cardiovascular: Regular rate, Normal S1, Normal S2, No murmurs, Gallops, Rubs Abdomen: Normal bowel sounds, Soft, No tenderness Neuro: Cranial nerves 3-12 NL Psych/Mental Status: Mental status NL Medications Current Medications Medications Dose Ordered Sig/Nela Route Start Time Stop Time Status Last Admin Dose Admin Acetaminophen 325 mg Q4HP PRN PO 11/11/24 21:45 11/13/24 17:07 325 MG Ciprofloxacin 200 ml @ 200 mls/hr Q12HR IV 11/12/24 09:00 11/14/24 10:29 200 MLS/HR Metronidazole 100 ml @ 100 mls/hr Q8HR IV 11/12/24 06:00 11/14/24 05:46 100 MLS/HR Ipratropium [place] 0.5 mg Q6HR NEB 11/12/24 00:00 11/14/24 07:49 0.5 MG Albuterol 2.5 mg Q6HR NEB 11/12/24 00:00 11/14/24 07:49 2.5 MG Hydralazine HCl 10 mg Q6HP PRN IV 11/12/24 00:15 11/12/24 01:09 10 MG Losartan Potassium 100 mg DAILY PO 11/12/24 10:00 Atorvastatin Calcium 20 mg HS PO 11/12/24 22:00 11/13/24 23:37 20 MG Metoprolol Succinate 25 mg DAILY PO 11/12/24 10:00 11/14/24 10:27 25 MG Tramadol HCl 50 mg QPM PO 11/12/24 18:00 11/13/24 17:07 50 MG Ondansetron HCl 4 mg Q6HR IV 11/12/24 12:00 11/14/24 05:47 4 MG Sodium Chloride 1,000 ml @ 100 mls/hr Q10H IV 11/13/24 10:00 11/13/24 20:00 100 MLS/HR Pantoprazole Sodium 80 mg BID IV 11/13/24 22:00 11/14/24 10:29 80 MG Sucralfate 1 gm QID@0600,1130,1700,2200 PO 11/13/24 17:00 11/14/24 10:41 1 GM Metoclopramide HCl 5 mg BID IV 11/13/24 22:00 11/13/24 22:42 5 MG Laboratory Results Laboratory Tests 11/13/24 06:43 Urinalysis Test 11/12/24 03:23 Urine Color Yellow (Yellow) Urine Clarity Clear (Clear) Urine pH 5.5 (5.0-9.0) Urine Specific [place] 1.022 (1.001-1.035) Urine Protein Trace (Negative) H Urine Ketones Negative (Negative) Urine Blood Trace /uL (Negative) H Urine Nitrite Negative (Negative) Urine Bilirubin Negative (Negative) Urine Urobilinogen Normal mg/dL (Negative) Urine Leukocyte Esterase 3+ /uL (Negative) Urine RBC 5 /hpf (0 - 3) Urine Microscopic WBC 14 /HPF (0-3) H Urine Squamous Epithelial Cells Few /hpf (<5) Urine Bacteria None seen /hpf (None Seen) Urine Mucus Few (None Seen) Urine Glucose Normal mg/dL (Normal) Microbiology Microbiology Date/Time Source Procedure Growth Status 11/12/24 10:39 Blood Blood Culture - Preliminary NO GROWTH AFTER 48 HOURS OF INCUBATION. 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 . Appreciate GI input. EGD resolved. Advance diet to clear liquid diet. CT abdomen pelvis: Abnormal wall thickening of the gastro duodenal junction with extension into proximal duodenum no significant adjacent fat stranding is noted. Findings are concerning for early infectious / inflammatory process with malignancy not excluded. Irregular lobulated hyperdense materials within the gallbladder. These may represent stones but further evaluation with ultrasound is recommended. Diffuse wall thickening of the distal esophagus concerning for acute infectious/ inflammatory esophagitis. Other etiologies not excluded.Possible layering of undigested material in the stomach. Consider further evaluation with CT enterography if there is concern for gastric pathology IV fluids IV ceftriaxone and metronidazole Ipratropium and albuterol p.r.n. Hold Lasix 40 mg Continue home medication metoprolol Pending echocardiogram Continue losartan 100 mg p.o. daily Continue Atorvastatin 20 mg p.o. daily Continue home medication abdominal 50 mg p.o. daily PUD prophylaxis with Protonix DVT prophylaxis with SCD Plan discussed with: Patient Date of Service: Nov 14, 2024 Billing Provider: PAUL YANG MD Common Visit Codes: [id number] INP/OBS CARE(HIGH) PAUL YANG MD Nov 14, 2024 12:45
[2024-11-15] VITALS (17 sets, daily range): BP systolic 92–126; BP diastolic 44–68; PULSE 60–86; RESP 15–85; TEMP 97.1–98.2; O2SAT 90–100
--- NOTE | 2024-11-15 14:58 | DVHPN2 ---
Progress Note - Dictate Date Seen: Nov 15, 2024 Medical Necessity Reason Pt with a Central, PICC or Fol: No Subjective Patient seen at bedside Tolerating full liquid diet Patient denies recent NSAID use EGD findings discussed with patient and his daughter vital signs Vital Sign Date Time Temp Pulse Resp B/P (MAP) Pulse Ox O2 Delivery O2 Flow Rate FiO2 11/15/24 13:00 97.6 65 18 112/56 (74) 100 97.6 11/15/24 10:00 Room Air 0.0 11/15/24 10:00 21 Total Intake and Output 11/14/24 11/14/24 11/15/24 14:59 22:59 06:59 Intake Total 320 ml 2060 ml 440 ml Output Total 350 ml Balance 320 ml 2060 ml 90 ml medications Current Medications Medications Dose Ordered Sig/Nela Route Start Time Stop Time Status Last Admin Dose Admin Acetaminophen 325 mg Q4HP PRN PO 11/11/24 21:45 11/15/24 05:33 325 MG Ciprofloxacin 200 ml @ 200 mls/hr Q12HR IV 11/12/24 09:00 11/15/24 09:32 200 MLS/HR Metronidazole 100 ml @ 100 mls/hr Q8HR IV 11/12/24 06:00 11/15/24 14:03 100 MLS/HR Ipratropium [place] 0.5 mg Q6HR NEB 11/12/24 00:00 11/15/24 11:44 0.5 MG Albuterol 2.5 mg Q6HR NEB 11/12/24 00:00 11/15/24 11:44 2.5 MG Hydralazine HCl 10 mg Q6HP PRN IV 11/12/24 00:15 11/12/24 01:09 10 MG Losartan Potassium 100 mg DAILY PO 11/12/24 10:00 Atorvastatin Calcium 20 mg HS PO 11/12/24 22:00 11/14/24 21:58 20 MG Metoprolol Succinate 25 mg DAILY PO 11/12/24 10:00 11/15/24 09:41 25 MG Tramadol HCl 50 mg QPM PO 11/12/24 18:00 11/14/24 17:05 50 MG Ondansetron HCl 4 mg Q6HR IV 11/12/24 12:00 11/14/24 05:47 4 MG Sodium Chloride 1,000 ml @ 100 mls/hr Q10H IV 11/13/24 10:00 11/15/24 11:06 100 MLS/HR Pantoprazole Sodium 80 mg BID IV 11/13/24 22:00 11/15/24 09:29 80 MG Sucralfate 1 gm QID@0600,1130,1700,2200 PO 11/13/24 17:00 11/15/24 11:40 1 GM Metoclopramide HCl 5 mg BID IV 11/13/24 22:00 11/15/24 09:37 5 MG objective General Appearance: Alert, Oriented X3, Cooperative, Not in acute distress HEENT: Atraumatic, Mucous membranes moist/pink Respiratory: Clear to auscultation, Normal air movement, No added sounds Cardiovascular: Regular rate, Normal S1, Normal S2, No murmurs Abdominal: Active bowel sounds, Soft, no distention, no tenderness Extremities: No edema, Normal pulses, No tenderness/swelling Skin: No Significant rash, except past surgical scars Neuro: Normal speech, sensorimotor deficits none Psych/Mental Status: Mental status NL, Mood NL laboratory and microbiology Laboratory Tests 11/13/24 06:43 Test 11/13/24 06:43 Range/Units Serum Glucose 123 H 74-106 mg/dL Problems(with codes): (1) Gastric ulcer (2) Duodenal ulcer disease (3) Hiatal hernia with GERD and esophagitis (4) Intractable nausea and vomiting Prognosis Plan Diet has been advanced to soft mechanical Protonix 40 mg p.o. twice a day Carafate 1 g p.o. 4 times a day DC aspirin NSAIDs smoking alcohol Patient will like to be discharged home by tomorrow He was advised to follow up in my office as an outpatient for ongoing GI management and evaluation Once again thank you for allowing me to participate in the care of this patient Dietary Evaluation Review Comments: 1) Advance diet as meidcally feasible 2) Continue current plan of care Expected Outcomes/Goals: To meet >75% estimated needs Fu 2-3 days Plan discussed with: Patient, Daughter KWADWOMELISSA MD Nov 15, 2024 14:58
--- NOTE | 2024-11-15 22:17 | DVHPN2 ---
Subjective The patient is seen and examined at bedside. No complaint today. Reviewed: Care Plan, H&P, Labs, Medications, Previous Orders, Radiology Changes from previous H/P or p: No Changes Eyes: No Pain, No Vision change, No Conjunctivae inflammation, No Eyelid inflammation, No Other, No Redness ENT: No Ear pain, No Ear discharge, No Nose pain, No Nose discharge, No Nose congestion, No Mouth pain, No Mouth swelling, No Throat pain, No Throat swelling, No Other Cardiovascular: No Chest Pain, No Palpitations, No Orthopnea, No Paroxysmal Noc. Dyspnea, No Edema, No Lt Headedness, No Other Respiratory: No Cough, No Dry, No Shortness of breath, No SOB with excertion, No Wheezing, No Hemoptysis, No Pleuritic Pain, No Sputum, No Other Gastrointestinal: Nausea, Vomiting; No Abdominal Pain, No Diarrhea, No Constipation, No Melena, No Hematochezia, No Other Genitourinary: No Dysuria, No Frequency, No Incontinence, No Hematuria, No Retention, No Other Musculoskeletal: No other, No neck pain, No shoulder pain, No arm pain, No back pain, No hand pain, No leg pain, No foot pain Objective Vitals Vital Signs Date Time Temp Pulse Resp B/P (MAP) Pulse Ox O2 Delivery O2 Flow Rate FiO2 11/15/24 21:00 98.2 85 18 126/68 (87) 92 98.2 11/15/24 19:47 Room Air* 0 21 Intake/Output Intake and Output 11/15/24 07:00 Intake Total 2820 ml Output Total 350 ml Balance 2470 ml Intake Oral 1320 ml IV Total 1500 ml Output Urine Total 350 ml # Bowel Movements 4 General Appearance: Alert, Cooperative, No acute distress HEENT: Atraumatic, PERRLA, EOMI, Mucous membr. moist/pink Neck: Supple Cardiovascular: Regular rate, Normal S1, Normal S2, No murmurs, Gallops, Rubs Abdomen: Normal bowel sounds, Soft, No tenderness Neuro: Cranial nerves 3-12 NL Psych/Mental Status: Mental status NL Medications Current Medications Medications Dose Ordered Sig/Nela Route Start Time Stop Time Status Last Admin Dose Admin Acetaminophen 325 mg Q4HP PRN PO 11/11/24 21:45 11/15/24 05:33 325 MG Ciprofloxacin 200 ml @ 200 mls/hr Q12HR IV 11/12/24 09:00 11/15/24 21:39 200 MLS/HR Metronidazole 100 ml @ 100 mls/hr Q8HR IV 11/12/24 06:00 11/15/24 21:35 100 MLS/HR Ipratropium [place] 0.5 mg Q6HR NEB 11/12/24 00:00 11/15/24 19:47 0.5 MG Albuterol 2.5 mg Q6HR NEB 11/12/24 00:00 11/15/24 19:47 2.5 MG Hydralazine HCl 10 mg Q6HP PRN IV 11/12/24 00:15 11/12/24 01:09 10 MG Losartan Potassium 100 mg DAILY PO 11/12/24 10:00 Atorvastatin Calcium 20 mg HS PO 11/12/24 22:00 11/15/24 21:36 20 MG Metoprolol Succinate 25 mg DAILY PO 11/12/24 10:00 11/15/24 09:41 25 MG Tramadol HCl 50 mg QPM PO 11/12/24 18:00 11/15/24 17:10 50 MG Ondansetron HCl 4 mg Q6HR IV 11/12/24 12:00 11/14/24 05:47 4 MG Sodium Chloride 1,000 ml @ 100 mls/hr Q10H IV 11/13/24 10:00 11/15/24 11:06 100 MLS/HR Pantoprazole Sodium 80 mg BID IV 11/13/24 22:00 11/15/24 21:32 80 MG Sucralfate 1 gm QID@0600,1130,1700,2200 PO 11/13/24 17:00 11/15/24 21:36 1 GM Metoclopramide HCl 5 mg BID IV 11/13/24 22:00 11/15/24 21:39 5 MG Laboratory Results Laboratory Tests 11/13/24 06:43 Urinalysis Test 11/12/24 03:23 Urine Color Yellow (Yellow) Urine Clarity Clear (Clear) Urine pH 5.5 (5.0-9.0) Urine Specific [place] 1.022 (1.001-1.035) Urine Protein Trace (Negative) H Urine Ketones Negative (Negative) Urine Blood Trace /uL (Negative) H Urine Nitrite Negative (Negative) Urine Bilirubin Negative (Negative) Urine Urobilinogen Normal mg/dL (Negative) Urine Leukocyte Esterase 3+ /uL (Negative) Urine RBC 5 /hpf (0 - 3) Urine Microscopic WBC 14 /HPF (0-3) H Urine Squamous Epithelial Cells Few /hpf (<5) Urine Bacteria None seen /hpf (None Seen) Urine Mucus Few (None Seen) Urine Glucose Normal mg/dL (Normal) Microbiology Microbiology Date/Time Source Procedure Growth Status 11/12/24 10:39 Blood Blood Culture - Preliminary NO GROWTH AFTER 72 HOURS OF INCUBATION. 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 Continuing Ondansetron metoclopramide, Protonix [address] abdomen pelvis: Abnormal wall thickening of the gastro duodenal junction with extension into proximal duodenum no significant adjacent fat stranding is noted. Findings are concerning for early infectious / inflammatory process with malignancy not excluded. Irregular lobulated hyperdense materials within the gallbladder. These may represent stones but further evaluation with ultrasound is recommended. Diffuse wall thickening of the distal esophagus concerning for acute infectious/ inflammatory esophagitis. Other etiologies not excluded.Possible layering of undigested material in the stomach. Consider further evaluation with CT enterography if there is concern for gastric pathology IV fluids IV ceftriaxone and metronidazole Ipratropium and albuterol p.r.n. Hold Lasix 40 mg Continue home medication metoprolol This medical document was created using an electronic medical record system with [employer] computerized dictation system. Although this document has been carefully reviewed, there may still be some phonetic and typographical errors. These areas are purely typographical due to imperfections of the software programs, and do not reflect any compromise in the patient's medical care. Pending echocardiogram Continue losartan 100 mg p.o. daily Continue Atorvastatin 20 mg p.o. daily Continue home medication abdominal 50 mg p.o. daily PUD prophylaxis with Protonix DVT prophylaxis with SCD Plan discussed with: Patient My Orders Orders - PAUL YANG MD Procedure Category Date Status Time Mechanical Soft Diet DIET 11/15/24 Transmitted Dinner Date of Service: Nov 15, 2024 Billing Provider: PAUL YANG MD Common Visit Codes: [id number] INP/OBS CARE(HIGH) PAUL YANG MD Nov 15, 2024 22:17
[2024-11-16] VITALS (11 sets, daily range): BP systolic 104–135; BP diastolic 48–73; PULSE 60–77; RESP 14–20; TEMP 36.8; O2SAT 92–100
[2024-11-16 10:21] LABS: Basophils # (auto) 0 10 ^3/uL (0-0.2); Basophils % (auto) 0.4 % (0.0-2.0); Eosinophils # (auto) 0.1 10 ^3/uL (0-0.8); Eosinophils % (auto) 1.3 % (0.0-7.0); Hematocrit 32.6 % (41.0-53.0); Hemoglobin 11.2 g/dL (13.5-17.5); Lymphocytes # (auto) 1.1 10 ^3/uL (0.4-5.4); Lymphocytes % (auto) 12.4 % (10.0-50.0); Mean Corpuscular Hemoglobin 32.4 pg (28.0-32.0); Mean Corpuscular Hgb Conc. 34.4 g/dL (32.0-36.0); Mean Corpuscular Volume 94.3 fL (80.0-100.0); Monocytes # (auto) 1.2 10 ^3/uL (0-1.3); Monocytes % (auto) 12.5 % (0.0-12.0); Neutrophils # (auto) 6.8 10 ^3/uL (1.6-8.6); Neutrophils % (auto) 73.4 % (37.0-80.0); Platelet Count (auto) 284 10^3/uL (140-450); Red Blood Cells 3.46 10^6/uL (4.5-5.90); Red Cell Distribution Width 15.9 % (11.8-14.3); White Blood Cell 9.2 10^3/uL (4.4-10.8)
[2024-11-16 10:32] LABS: Chloride 105 mmol/L (98-107); Sodium 140 mmol/L (136-145)
[2024-11-16 10:33] LABS: Anion Gap 8 (5-15); Carbon Dioxide 27 mmol/L (20-31)
[2024-11-16 10:34] LABS: Calcium 8.8 mg/dL (8.7-10.4)
[2024-11-16 10:35] LABS: Potassium 3.2 mmol/L (3.5-5.1)
[2024-11-16 10:39] LABS: BUN/Creatinine Ratio 14.3 (10.0-20.0); Blood Urea Nitrogen 11 mg/dL (9-23); Glucose 97 mg/dL (74-106)
[2024-11-16] MEDS ORDERED: PANT40TA2 PO (11:01)
[2024-11-16] MEDS ORDERED: SUCR1SUS26 PO (11:01)
[2024-11-16] MEDS: POTASSIUM CHL 20 Meq TABLET PO ONE (11:22)
--- NOTE | 2024-11-16 16:31 | DVHDSRES ---
Discharge Summary Date of Admission Resident Creating Document: ELADIO NELSON RESIDENT Nov 11, 2024 at 21:43 Date of Discharge: Nov 16, 2024 Admitting Diagnosis Nausea and vomiting Labs/Diagnostic Data: Laboratory Results Test 11/16/24 09:50 11/16/24 08:21 11/13/24 09:28 11/12/24 06:11 White Blood Count 9.2 10^3/uL (4.4-10.8) Red Blood Count 3.46 10^6/uL (4.5-5.90) Hemoglobin 11.2 g/dL (13.5-17.5) Hematocrit 32.6 % (41.0-53.0) Mean Corpuscular Volume 94.3 fL (80.0-100.0) Mean Corpuscular Hemoglobin 32.4 pg (28.0-32.0) Mean Corpuscular Hemoglobin Concent 34.4 g/dL (32.0-36.0) Red Cell Distribution Width 15.9 % (11.8-14.3) Platelet Count 284 10^3/uL (140-450) Mean Platelet Volume 7.5 fL (6.9-10.8) Neutrophils (%) (Auto) 73.4 % (37.0-80.0) Lymphocytes (%) (Auto) 12.4 % (10.0-50.0) Monocytes (%) (Auto) 12.5 % (0.0-12.0) Eosinophils (%) (Auto) 1.3 % (0.0-7.0) Basophils (%) (Auto) 0.4 % (0.0-2.0) Neutrophils # (Auto) 6.8 10 ^3/uL (1.6-8.6) Lymphocytes # (Auto) 1.1 10 ^3/uL (0.4-5.4) Monocytes # (Auto) 1.2 10 ^3/uL (0-1.3) Eosinophils # (Auto) 0.1 10 ^3/uL (0-0.8) Basophils # (Auto) 0 10 ^3/uL (0-0.2) Nucleated Red Blood Cells 0.0 % Sodium Level 140 mmol/L (136-145) Potassium Level 3.2 mmol/L (3.5-5.1) Chloride Level 105 mmol/L (98-107) Carbon Dioxide Level 27 mmol/L (20-31) Anion Gap 8 (5-15) Blood Urea Nitrogen 11 mg/dL (9-23) Creatinine 0.77 mg/dL (0.700-1.30) Glomerular Filtration Rate Calc 89 mL/min (>90) BUN/Creatinine Ratio 14.3 (10.0-20.0) Serum Glucose 97 mg/dL (74-106) Calcium Level 8.8 mg/dL (8.7-10.4) Stool Occult Blood Negative (Negative) Stool Occult Blood Sample #3 (Negative) Prothrombin Time 11.1 sec (9.3-11.8) Prothrombin Time INR 1.05 (0.9-1.15) Activated Partial Thromboplast Time 27.8 SEC (24.5-34.5) Hemoglobin A1c 6.2 % A1C (<5.7) Total Bilirubin 0.6 mg/dL (0.2-1.0) Aspartate Amino Transferase (AST) 26 U/L (13-40) Alanine Aminotransferase (ALT) 24 U/L (7-40) Alkaline Phosphatase 61 U/L (46-116) Total Protein 7.0 g/dL (5.7-8.2) Albumin 4.2 g/dL (3.2-4.8) Triglycerides Level 66 mg/dL (< 150) Cholesterol Level 87 mg/dL (< 200) LDL Cholesterol 33 mg/dL (< 100) HDL Cholesterol 39 mg/dL (40-59) Vitamin B12 Level 321 pg/mL (211-911) Vitamin D 25-Hydroxy 44.8 ng/mL (30.0-100) Folic Acid 16.99 ng/mL (>5.38) Thyroid Stimulating Hormone (TSH) 0.55 uIU/mL (0.55-4.78) Test 11/12/24 03:23 11/11/24 17:46 Urine Color Yellow (Yellow) Urine Clarity Clear (Clear) Urine pH 5.5 (5.0-9.0) Urine Specific [place] 1.022 (1.001-1.035) Urine Protein Trace (Negative) Urine Ketones Negative (Negative) Urine Blood Trace /uL (Negative) Urine Nitrite Negative (Negative) Urine Bilirubin Negative (Negative) Urine Urobilinogen Normal mg/dL (Negative) Urine Leukocyte Esterase 3+ /uL (Negative) Urine RBC 5 /hpf (0 - 3) Urine Microscopic WBC 14 /HPF (0-3) Urine Squamous Epithelial Cells Few /hpf (<5) Urine Bacteria None seen /hpf (None Seen) Urine Mucus Few (None Seen) Urine Glucose Normal mg/dL (Normal) Urine Opiates Screen Neg (NEGATIVE) Urine Fentanyl Screen Neg (NEGATIVE) Urine Barbiturates Screen Neg (NEGATIVE) Urine Phencyclidine Screen Neg (NEGATIVE) Urine Amphetamines Screen Neg (NEGATIVE) Urine Benzodiazepines Screen Neg (NEGATIVE) Urine Cocaine Screen Neg (NEGATIVE) Urine Cannabinoids Screen Neg (NEGATIVE) Lactic Acid Level 1.6 mmol/L (0.4-2.0) Phosphorus Level 2.5 mg/dL (2.4-5.1) Magnesium Level 2.3 mg/dL (1.6-2.6) Troponin I High Sensitivity 3 ng/L (</=54) Lipase 30 U/L (12-53) Other Laboratory Tests 11/16/24 09:50 Brief Hx & Hospital Course: Patient is 84-year-old male with past medical history of skin cancer s/p excision, COPD, CHF, hypertension, asthma, 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 The patient was evaluated for intractable nausea and vomiting, undergoing CT scan of the abdomen pelvis which showed bnormal wall thickening of the gastroduodenal junction with extension to proximal duodenum no significant adjacent fat stranding is noted, findings concerning for early infectious/inflammatory process with malignancy not excluded. Irregular lobulated hyperdense material within the gallbladder. Diffuse wall thickening of the distal esophagus concerning for acute infectious/inflammatory esophagitis. Possible layering of undigested material in the stomach. Patient was kept NPO. Given antiemetic medications. Social Media Marketing Manager was consulted. Underwent upper GI endoscopy. Upper GI endoscopy 11/13/24 1. Patient had multiple medium and large postbulbar duodenal ulcers with slight narrowing and spasm of the postbulbar area causing partial obstruction 2. There was a food bezoar in the duodenal bulb which I was able to fragment and partially advance into the 2nd part of the duodenum 3. Moderate gastritis with multiple gastric ulcers and erosions 4. 2 cm sliding-type hiatal hernia with severe grade C erosive esophagitis with esophageal ulcers extending into the distal 10 cm of the esophagus from which biopsies were obtained 5. Otherwise normal examination up to the 2nd part of the duodenum with no active bleeding at this time The patient was given Protonix 80 mg IV b.i.d., Carafate suspension 1 g p.o. 4 times daily. Initiate on clear liquid diet. Patient tolerated diet. Nausea vomiting abdominal pain significantly improved over the course of hospitalization. Given the patient's symptom improved, patient will be discharged home with Protonix 40 mg p.o. b.i.d., Carafate 1 g p.o. 4 times daily, patient will need follow with primary care physician and solar fabrication technician for results of biopsy. Physical examination on discharge: General Appearance: Cooperative. Well developed. Well nourished. NAD Head Exam: Normal inspection Neck Exam: Normal inspection. Non-tender. Normal alignment Pulmonary/Respiratory: Chest non-tender. Clear bilateral breath sounds Cardiovascular/Chest: Regular rate and rhythm. No murmurs. No JVD. Peripheral Pulses: 2+ Radial (R). 2+ Radial (L). 2+ Pedal (R). 2+ Pedal (L) Abdominal Exam: Normal bowel sounds. Soft. Nontender. No hepatosplenomegaly. No masses Ankle Exam: Negative ankle edema Lower extremities: Negative lower extremity edema Neuro/Mental Status: A&O x4. Coherent Thoughts/Psych: Normal thought pattern. Appropriate mood and affect. Good judgement and insight Appearance: In no acute distress Skin Exam: Normal inspection. Normal color. Warm. Dry Discussed with Dr. 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 Patient was counseled about treatment plan, medications, possible side effects, patientverbalized understanding. All questions were answered to the best of my ability. This discharge took greater then 30 minutes in planning, reviewing documentation, counseling the patient, and discussing with other team members." ASSESSMENT ASSESSMENT Assessment multiple medium and large postbulbar duodenal ulcers multiple gastric ulcer Addendum Addendum Addendum I was physically present for the anderson portions of the service provided to patient by THE RESIDENT. I have reviewed the documentation, discussed the case with resident and agree with the resident's documentation except as noted. Also the patient's clinical case was discussed with the patient's nurse. This medical document was created using an electronic medical record system with computerized dictation system. Although this document has been carefully reviewed, there might still be some phonetic and typographical errors. These areas are purely typographical due to imperfections of the software programs, and do not reflect any compromise in the patient's medical care. Late signature. Date of Service: Nov 16, 2024 Billing Provider: YASH AYALA MD Common Visit Codes: 59901-QYK/OBS DISCH DAY >30min ELADIO NELSON RESIDENT Nov 16, 2024 16:31 YASH AYALA MD Nov 18, 2024 09:03
== END 2024-11-16 12:13 | disposition home or self-care (01) | DRG 871 ==
LOC: ER 13:21 → OVERFLOW 21:43 → TELE-WESTW 23:09
PROVIDERS: ADMIT Internal Medicine; ATTEND Internal Medicine
PROC: 0DB68ZX Excision of Stomach, Via Natural or Artificial Opening Endoscopic, Diagnostic (ICD-10-PCS; 2024-11-13)
PROC: 0DB58ZX Excision of Esophagus, Via Natural or Artificial Opening Endoscopic, Diagnostic (ICD-10-PCS; 2024-11-13)
PROC: 0DB98ZX Excision of Duodenum, Via Natural or Artificial Opening Endoscopic, Diagnostic (ICD-10-PCS; principal; 2024-11-13 15:21)
DX: A41.9 Sepsis, unspecified organism (principal); I50.33 Acute on chronic diastolic (congestive) heart failure; K22.10 Ulcer of esophagus without bleeding; K26.9 Duodenal ulcer, unspecified as acute or chronic, without hemorrhage or perforation; K52.9 Noninfective gastroenteritis and colitis, unspecified; K29.70 Gastritis, unspecified, without bleeding; K29.80 Duodenitis without bleeding; K25.9 Gastric ulcer, unspecified as acute or chronic, without hemorrhage or perforation; J44.9 Chronic obstructive pulmonary disease, unspecified; E78.5 Hyperlipidemia, unspecified; G89.29 Other chronic pain; M54.32 Sciatica, left side; M54.31 Sciatica, right side; I11.0 Hypertensive heart disease with heart failure; K44.9 Diaphragmatic hernia without obstruction or gangrene; Z85.828 Personal history of other malignant neoplasm of skin; Z79.899 Other long term (current) drug therapy; I27.20 Pulmonary hypertension, unspecified
CPT/HCPCS: 36415; 43239; 71046; 74176; 76705; 80048; 80053; 80061; 80307; 81001; 82270; 82306; 82607; 82746; 83036; 83605; 83690; 83735; 84100; 84443; 84484; 85025; 85610; 85730; 86850; 86900; 86901; 87040; 93306; 94640; 96365; 96375; G0378; J2003; J2405; J2470; J2704; J3490